=== PATIENT | female | born 1955 | race Caucasian/White ===

== ENCOUNTER 2018-11-14 17:46 | Inpatient (IN) ==
--- NOTE | 2018-11-14 18:54 | ED ---
HPI General Chief Complaint: Fall Stated Complaint: R upper thigh pain /radiating down leg/can't stand Time Seen by Provider: 11/14/18 18:20 Source: patient Mode of arrival: ambulatory Limitations: no limitations History of Present Illness HPI Narrative: 63-year-old female presents the emergency room for evaluation of right upper leg pain for the past week. Patient had a mechanical fall over a rug 1 week ago. Adamantly denies any other injuries. She had to be assisted to stand up by her and daughters but by later in the evening was able to ambulate. Reports moderate pain worsened with ambulation throughout the week. Pain is mostly localized to the mid femur and radiates down her entire right lower extremity. She also reports pain in her right lateral hip and buttocks region. Her pain was manageable and seemed to be improving until today when it acutely worsened while walking. She has been taking her prescribed hydrocodone without relief. Denies paresthesias. Only history of anxiety and arthritis for which she is prescribed diazepam and hydrocodone. She denies being on any blood thinners. Primary care physician is Dr. Walker. complaint: Reports thigh injury Onset (ago): week(s) Place: Reports home Severity: moderate Severity scale (1-10): 10 Relieving factors: nothing Exacerbating factors: weight bearing, movement and palpation Context: Reports fall Associated symptoms: Reports able to partially bear weight; Denies snap/pop sensation, numbness and tingling Other symptoms: Reports none Related Data Home Medications Medication Instructions Recorded Confirmed diazepam 10 mg PO BID PRN 11/14/18 11/14/18 hydrocodone-acetaminophen 1 tab PO TID PRN 11/14/18 11/14/18 Allergies Allergy/AdvReac Type Severity Reaction Status Date / Time No Known Allergies Allergy Verified 11/14/18 17:52 Review of Systems ROS: all other systems reviewed are negative [facility] Medical History Medical History Chronic pain (Acute) Surgical History Surgical History No history of previous surgery (Acute) Social History Social History Substance History: No History of Abuse Smoking Status: Former smoker How Often Do You Have a Drink Containing Alcohol: Never Recent Travel in [facility] within the Last 8 Weeks: No Recent Out of Country Travel within the Last 8 Weeks: No Immunization History Tetanus Immunization: Unsure Exam Narrative Exam Narrative: GENERAL: Well-nourished, well-developed female no acute distress. Afebrile. SKIN: Focused skin assessment warm/dry. There is a 4 cm in diameter area of ecchymosis over the right lateral hip. HEAD: Normocephalic. EYES: No scleral icterus. No injection or drainage. NECK: Supple, trachea midline. No JVD or lymphadenopathy. CARDIOVASCULAR: Regular rate and rhythm without murmurs, gallops, or rubs. RESPIRATORY: Breath sounds equal bilaterally. No accessory muscle use. Abdomen: No guarding or rigidity. No rebound tenderness. MUSCULOSKELETAL: No cyanosis. No obvious deformity, rotation, or shortening of the right leg. 2+ dorsalis pedis pulse on the right. Full range of motion of the hip. Tenderness to palpation of the right mid femur and right upper lateral hip. No bony tenderness to palpation of the lower leg. No obvious edema. Neurological: Sensation is intact right lower extremity. Nonfocal on exam. Psychiatric: Slightly anxious. Insight and judgment appear normal. Course Initial Documented Vital Signs Temperature 97.0 F L 11/14/18 17:50 Pulse Rate 75 11/14/18 17:50 Respiratory Rate 16 11/14/18 17:50 Blood Pressure 129/68 11/14/18 17:50 Pulse Oximetry 97 11/14/18 17:50 Last Documented Vital Signs Temperature 97.0 F L 11/14/18 17:50 Pulse Rate 77 11/14/18 20:00 Respiratory Rate 18 11/14/18 20:00 Blood Pressure 116/65 11/14/18 20:00 Pulse Oximetry 99 11/14/18 20:00 Medical Decision Making KALANI Attestation KALANI supervised visit: Yes Attestation: I, Dr. Spence, have reviewed the advance practice practitioner' s documentation and am in agreement, met with the patient face to face, made the diagnosis, and the medical decision making was done by me. *My assessment and Findings: The patient is a 63-year-old female who tripped and fell 1 week ago, tripping over a rug, landing on her right side. Patient initially was ambulatory, however, notes that she is having increasing pain of the right hip with ambulation and is now unable to ambulate. The patient denies any other injuries during the fall. Patient does have a history of anxiety for which she takes Valium, denies any previous medical problems except for anxiety, denies any previous surgeries. The patient is followed by her primary physician, Dr. Buster Walker, does not have an orthopedist. X-ray reveals a femoral neck fracture. Therefore, IV was established, labs are drawn and sent, the patient was placed on cardiac telemetry monitoring and continuous pulse oximetry monitoring. Tee catheter was ordered. The patient was administer morphine and Zofran for pain. EKG was ordered and interpreted. Chest x-ray was obtained. A call was placed to the on-call [facility] physician for admission. The patient will require transfer to [facility] for definitive surgical management. A call was also placed to the on-call orthopedist, Dr. Guerin, at 7:30 PM. I discussed the patient with Dr. Guerin who agrees with n.p.o. after midnight, therefore, the patient will be kept n.p.o. after midnight. I discussed the patient with Dr. Mcpherson who agrees with admission. MDM Narrative Medical decision making narrative: 63-year-old female presents to the emergency room for evaluation of right femur pain after mechanical fall about 1 week ago. Patient landed on her right lateral hip and has been amatory since then. Her pain was initially improving but today it worsened acutely without new trauma or injury. Right lower extremity is neurovascular intact with 2+ dorsalis pedis pulse. She has passive range of motion of her hip without shortening, rotation, deformity, or edema but there is pain with active range of motion. There is a small area of ecchymosis on the lateral hip. No significant bony tenderness to palpation. X-ray of the femur shows femoral neck fracture. At this time IV access was established and basic labs obtained. Preop EKG and chest x-ray were taken. Patient will be transferred to the [facility] for surgical intervention. She was made aware and understands and agrees to plan. Medical Screen Exam Complete: Yes Emergency Medical Condition: Yes Differential Diagnosis Differential Diagnosis: Fracture, strain, contusion, dislocation, spasm Lab Data Lab results reviewed: Yes I reviewed the patient's lab results. Result diagrams: 11/14/18 19:54 11/14/18 19:54 Lab Results 11/14/18 11/14/18 11/14/18 Range/Units 19:54 19:54 19:54 CBC w Diff Auto diff final WBC 11.3 H (4.0-11.0) th/mm3 RBC 3.64 L (4.00-5.30) mil/mm3 Hgb 11.8 (11.6-15.3) gm/dL Hct 35.7 (35.0-46.0) % MCV 98.1 (80.0-100.0) fL MCH 32.5 (27.0-34.0) pg MCHC 33.1 (32.0-36.0) % RDW 11.9 (11.6-17.2) % Plt Count 347 (150-450) th/mm3 MPV 8.5 (7.0-11.0) fL Neut % (Auto) 83.9 H (16.0-70.0) % Lymph % (Auto) 10.5 (9.0-44.0) % Green % (Auto) 4.5 (0.0-8.0) % Eos % (Auto) 0.5 (0.0-4.0) % Baso % (Auto) 0.6 (0.0-2.0) % Neut # (Auto) 9.4 H (1.8-7.7) th/mm3 Lymph # (Auto) 1.2 (1.0-4.8) th/mm3 Green # (Auto) 0.5 (0.0-0.9) th/mm3 Eos # (Auto) 0.1 (0.0-0.4) th/mm3 Baso # (Auto) 0.1 (0.0-0.2) th/mm3 WBC Differential . Differential Comment . PT 10.4 (9.8-11.6) sec INR 1.0 Ratio APTT 27.8 (23.4-31.7) sec Sodium 137 (136-145) meq/L Potassium 4.3 (3.5-5.1) meq/L Chloride 103 (98-107) meq/L Carbon Dioxide 27.8 (21.0-32.0) meq/L Anion Gap 6 (5-15) meq/L BUN 23 H (7-18) mg/dL Creatinine 1.00 (0.50-1.00) mg/dL Estimated GFR 56 L (>89) mL/min Random Glucose 102 (74-106) mg/dL Calcium 8.5 (8.5-10.1) mg/dL Total Bilirubin 0.3 (0.2-1.0) mg/dL AST 27 (15-37) U/L ALT 19 (10-53) U/L Alkaline Phosphatase 117 (45-117) U/L Total Protein 7.3 (6.4-8.2) g/dL Albumin 3.4 (3.4-5.0) g/dL Urine Color (Yellw/Straw) Urine Clarity (Clear) Urine pH (5.0-8.5) Ur Specific [place] (1.002-1.035) Urine Protein (Neg-Trace) mg/dL Urine Glucose (UA) (Negative) mg/dL Urine Ketones (Negative) mg/dL Urine Occult Blood (Negative) Urine Nitrate (Negative) Urine Bilirubin (Negative) Urine Urobilinogen (Less than 2) mg/dL Ur Leukocyte Esterase (Negative) Urine RBC (0-3) /hpf Urine WBC (0-5) /hpf Ur Squamous Epith Cells (0-5) /hpf Ur Microscopic Review 11/14/18 Range/Units 20:40 CBC w Diff WBC (4.0-11.0) th/mm3 RBC (4.00-5.30) mil/mm3 Hgb (11.6-15.3) gm/dL Hct (35.0-46.0) % MCV (80.0-100.0) fL MCH (27.0-34.0) pg MCHC (32.0-36.0) % RDW (11.6-17.2) % Plt Count (150-450) th/mm3 MPV (7.0-11.0) fL Neut % (Auto) (16.0-70.0) % Lymph % (Auto) (9.0-44.0) % Green % (Auto) (0.0-8.0) % Eos % (Auto) (0.0-4.0) % Baso % (Auto) (0.0-2.0) % Neut # (Auto) (1.8-7.7) th/mm3 Lymph # (Auto) (1.0-4.8) th/mm3 Green # (Auto) (0.0-0.9) th/mm3 Eos # (Auto) (0.0-0.4) th/mm3 Baso # (Auto) (0.0-0.2) th/mm3 WBC Differential Differential Comment PT (9.8-11.6) sec INR Ratio APTT (23.4-31.7) sec Sodium (136-145) meq/L Potassium (3.5-5.1) meq/L Chloride (98-107) meq/L Carbon Dioxide (21.0-32.0) meq/L Anion Gap (5-15) meq/L BUN (7-18) mg/dL Creatinine (0.50-1.00) mg/dL Estimated GFR (>89) mL/min Random Glucose (74-106) mg/dL Calcium (8.5-10.1) mg/dL Total Bilirubin (0.2-1.0) mg/dL AST (15-37) U/L ALT (10-53) U/L Alkaline Phosphatase (45-117) U/L Total Protein (6.4-8.2) g/dL Albumin (3.4-5.0) g/dL Urine Color Yellow (Yellw/Straw) Urine Clarity Clear (Clear) Urine pH 6.0 (5.0-8.5) Ur Specific [place] Greater/equal 1.030 (1.002-1.035) Urine Protein Trace (Neg-Trace) mg/dL Urine Glucose (UA) Negative (Negative) mg/dL Urine Ketones Negative (Negative) mg/dL Urine Occult Blood Negative (Negative) Urine Nitrate Negative (Negative) Urine Bilirubin Negative (Negative) Urine Urobilinogen 0.2 (Less than 2) mg/dL Ur Leukocyte Esterase Negative (Negative) Urine RBC 0-3 (0-3) /hpf Urine WBC 0-5 (0-5) /hpf Ur Squamous Epith Cells 0-5 (0-5) /hpf Ur Microscopic Review Microscopic reviewed Imaging Data Radiologist's impression: Femur X-Ray 11/14/18 18:47 CONCLUSION: Femoral neck fracture. Chest X-Ray 11/14/18 19:19 CONCLUSION: The lungs are clear. ECG Data EKG Prior to Arrival: No Attestation: I personally reviewed and interpreted this ECG as follows: Interpretation: EKG reveals normal sinus rhythm with a rate of 77. No ischemic changes or ectopy noted. Discharge Plan Discharge Disposition Patient Disposition: ED Admit(ED Internal Use Only) Discharge Condition Condition: Stable Discharge Order Discharge Orders: ED Use Only Admit Order (Routine); Ordered 11/14/18 Ordered By: Collin Spence Discharge Details Diagnosis: Closed fracture of right hip Physicians Team ED Provider: Collin Spence ED Midlevel Provider: Elli Galicia Primary Care Provider: Guy Walker Attending Provider: Jg Mcpherson Other Providers: Marlon Valdez Brian Status ED Status: Admitted Patient
--- NOTE | 2018-11-14 19:16 | XR ---
EXAM DATE: 11/14/2018 7:07 PM EST AGE/SEX: 63 years / Female INDICATIONS: Fell 1 week ago, sudden increase in pain while shopping today CLINICAL DATA: This is the patient's initial encounter. Patient reports that signs and symptoms have been present for 1 week and indicates a pain score of 9/10. MEDICAL/SURGICAL HISTORY: None. None. COMPARISON: No prior exams available for comparison. FINDINGS: Abnormal. There is a mildly displaced fracture through the [facility]ap[facility] femoral neck with mild overrid ing. The femoral head remains within the acetabulum. There is disruption of the secondary trabecular pattern in the femoral neck. The shaft of the femur is intact. No radiopaque foreign bodies seen. CONCLUSION: Femoral neck fracture. Electronically signed by: Ernesto Rodriguez MD Board Certified Radiologist 11/14/2018 7:15 PM EST
[2018-11-14] MEDS ORDERED: Morphine Inj 4 MG/ML Vial IV.PUSH ONE (19:20)
[2018-11-14] MEDS ORDERED: Acetaminophen 325 MG Tablet PO PRN (19:44)
[2018-11-14] MEDS ORDERED: Bisacodyl 10 MG Supp RECTAL PRN (19:44)
[2018-11-14] MEDS ORDERED: Temazepam 15 MG Capsule PO PRN (19:44)
[2018-11-14] MEDS ORDERED: LORazepam 1 MG Tablet PO PRN (19:48)
[2018-11-14] MEDS: Sod Chloride 0.9% Inj 1,000 ML IV.CONT SCH (19:53)
[2018-11-14 20:02] LABS: Baso # (Auto) 0.1 th/mm3 (0.0-0.2); Baso % (Auto) 0.6 % (0.0-2.0); Eos # (Auto) 0.1 th/mm3 (0.0-0.4); Eos % (Auto) 0.5 % (0.0-4.0); Hematocrit 35.7 % (35.0-46.0); Hemoglobin 11.8 gm/dL (11.6-15.3); Lymph # (Auto) 1.2 th/mm3 (1.0-4.8); Lymph % (Auto) 10.5 % (9.0-44.0); Mean Corpuscular HGB Conc 33.1 % (32.0-36.0); Mean Corpuscular Hemoglobin 32.5 pg (27.0-34.0); Mean Corpuscular Volume 98.1 fL (80.0-100.0); Mean Platelet Volume 8.5 fL (7.0-11.0); Mono # (Auto) 0.5 th/mm3 (0.0-0.9); Mono % (Auto) 4.5 % (0.0-8.0); Neut # (Auto) 9.4 th/mm3 (1.8-7.7); Neut % (Auto) 83.9 % (16.0-70.0); Platelet Count 347 th/mm3 (150-450); Red Blood Count 3.64 mil/mm3 (4.00-5.30); Red Cell Distribution Width 11.9 % (11.6-17.2); White Blood Count 11.3 th/mm3 (4.0-11.0)
[2018-11-14 20:10] LABS: Chloride 103 meq/L (98-107); Potassium 4.3 meq/L (3.5-5.1); Sodium 137 meq/L (136-145)
[2018-11-14 20:13] LABS: Albumin 3.4 g/dL (3.4-5.0); Anion Gap 6 meq/L (5-15); Calcium 8.5 mg/dL (8.5-10.1); Carbon Dioxide 27.8 meq/L (21.0-32.0); Glucose,Random 102 mg/dL (74-106)
[2018-11-14 20:14] LABS: Blood Urea Nitrogen 23 mg/dL (7-18)
[2018-11-14 20:15] LABS: Activated Partial Thrombo Time 27.8 sec (23.4-31.7); Prothrombin Time 10.4 sec (9.8-11.6)
[2018-11-14 20:16] LABS: Alanine Aminotransferase 19 U/L (10-53); Aspartate Aminotransferase 27 U/L (15-37)
[2018-11-14 20:17] LABS: Glomerular Filtration Rate 56 mL/min (>89)
[2018-11-14 20:18] LABS: Total Protein 7.3 g/dL (6.4-8.2)
[2018-11-14 20:19] LABS: Alkaline Phosphatase 117 U/L (45-117)
--- NOTE | 2018-11-14 20:39 | XR ---
EXAM DATE: 11/14/2018 7:46 PM EST AGE/SEX: 63 years / Female INDICATIONS: Evaluate for pneumonia, pneumothorax, or other communicable diseases. Preop for hip kendra christine on 11/15/17. CLINICAL DATA: This is the patient's initial encounter. Patient reports that signs and symptoms have been present for 1 day and indicates a pain score of 0/10. MEDICAL/SURGICAL HISTORY: None. None. COMPARISON: No prior exams available for comparison. FINDINGS: A single AP view of the chest demonstrates the lungs to be symmetrically aerated without evidence of mass, infiltrate or effusion. The cardiomediastinal contours are unremarkable. Osseous structures a re intact. CONCLUSION: The lungs are clear. Electronically signed by: Ernesto Rodriguez MD Board Certified Radiologist 11/14/2018 8:37 PM EST
[2018-11-14 20:46] LABS: Bilirubin,Urine Negative (Negative); Clarity,Urine Clear (Clear); Color,Urine Yellow (Yellw/Straw); Glucose,Urine (UA) Negative (Negative); Leukocyte Esterase,Urine Negative (Negative); Nitrite,Urine Negative (Negative); Specific Gravity,Urine Greater/Equal 1.030 (1.002-1.035); Urobilinogen,Urine 0.2 mg/dL (Less than 2)
[2018-11-14 20:50] LABS: RBC,Urine 0-3 /hpf (0-3); Squamous Epithelial Cell,Urine 0-5 /hpf (0-5); WBC,Urine 0-5 /hpf (0-5)
[2018-11-14] MEDS ORDERED: Chlorhexidine Gluconate 2% 1 Pack (2 Cloths) TOPICAL ONE (23:14)
[2018-11-14] MEDS ORDERED: Metoprolol Tartrate 25 MG Tablet PO ONE (23:14)
[2018-11-14] MEDS ORDERED: Sodium Chlor 0.9% Inj 500 ML IV.SIG SCH (23:45)
[2018-11-14] MEDS: Morphine Inj 4 MG/ML Vial IV.PUSH PRN (23:51)
[2018-11-15] MEDS: Morphine Inj 4 MG/ML Vial IV.PUSH PRN (06:53)
--- NOTE | 2018-11-15 06:53 | P.PNOP ---
Subjective Interval history: Trip and fall less than a week ago at home. Continued to have pain to her right hip and had progressed difficulty with ambulation. At this point she is unable to put any weight on the right lower extremity. X-rays were shown for a right femoral neck fracture. Physical Exam Vital signs: Vital Signs 11/14/18 17:50 11/14/18 20:00 11/14/18 21:52 Temperature 97.0 F L 98.0 F Pulse Rate 75 77 74 Respiratory Rate 16 18 18 Blood Pressure 129/68 116/65 120/67 Pulse Oximetry 97 99 11/14/18 22:58 11/15/18 03:57 Temperature 98.4 F 97.6 F Pulse Rate 89 73 Respiratory Rate 20 18 Blood Pressure 144/67 H 112/58 L Pulse Oximetry 95 96 Intake & Output 11/14/18 11/14/18 11/15/18 06:59 18:59 06:59 Intake Total 1240 / 1240 Balance 1240 / 1240 Weight 45 kg 44.906 kg Intake: IV 1000 / 1000 NS Inj 1,000 ML @ 100 mls/hr IV 1000 / 1000 .CONT .Q10H ROWAN Rx#:[id number] Oral 240 / 240 Other: Date of Last Bowel Movement 11/14/18 Weight On Admission 44.906 kg Narrative: Bilateral upper extremities: Full range of motion neurovascular intact Left lower extremity: Full range of motion and neurovascular intact Right lower extremity: Pain to palpation and movement of hip. No pain with knee or ankle range of motion. Distally intact sensation with good capillary refills. Active dorsiflexion and plantarflexion of foot - Urinary Catheter Management Indwelling Urethral Catheter Cath placed during this visit: yes Reason for continuing: Other continuation reason Insertion date: 11/14/18 Insertion time: 20:32 Results - Labs CBC & Chem 7: 11/14/18 19:54 11/14/18 19:54 Laboratory Results - last 24 hr 11/14/18 11/14/18 11/14/18 19:54 19:54 19:54 CBC w Diff Auto diff final WBC 11.3 H RBC 3.64 L Hgb 11.8 Hct 35.7 MCV 98.1 MCH 32.5 MCHC 33.1 RDW 11.9 Plt Count 347 MPV 8.5 Neut % (Auto) 83.9 H Lymph % (Auto) 10.5 [place] % (Auto) 4.5 Eos % (Auto) 0.5 Baso % (Auto) 0.6 Neut # (Auto) 9.4 H Lymph # (Auto) 1.2 [place] # (Auto) 0.5 Eos # (Auto) 0.1 Baso # (Auto) 0.1 WBC Differential . Differential Comment . PT 10.4 INR 1.0 APTT 27.8 Sodium 137 Potassium 4.3 Chloride 103 Carbon Dioxide 27.8 Anion Gap 6 BUN 23 H Creatinine 1.00 Estimated GFR 56 L Random Glucose 102 Calcium 8.5 Total Bilirubin 0.3 AST 27 ALT 19 Alkaline Phosphatase 117 Total Protein 7.3 Albumin 3.4 Urine Color Urine Clarity Urine pH Ur Specific [place] Urine Protein Urine Glucose (UA) Urine Ketones Urine Occult Blood Urine Nitrate Urine Bilirubin Urine Urobilinogen Ur Leukocyte Esterase Urine RBC Urine WBC Ur Squamous Epith Cells Ur Microscopic Review 11/14/18 20:40 CBC w Diff WBC RBC Hgb Hct MCV MCH MCHC RDW Plt Count MPV Neut % (Auto) Lymph % (Auto) [place] % (Auto) Eos % (Auto) Baso % (Auto) Neut # (Auto) Lymph # (Auto) [place] # (Auto) Eos # (Auto) Baso # (Auto) WBC Differential Differential Comment PT INR APTT Sodium Potassium Chloride Carbon Dioxide Anion Gap BUN Creatinine Estimated GFR Random Glucose Calcium Total Bilirubin AST ALT Alkaline Phosphatase Total Protein Albumin Urine Color Yellow Urine Clarity Clear Urine pH 6.0 Ur Specific [place] Greater/equal 1.030 Urine Protein Trace Urine Glucose (UA) Negative Urine Ketones Negative Urine Occult Blood Negative Urine Nitrate Negative Urine Bilirubin Negative Urine Urobilinogen 0.2 Ur Leukocyte Esterase Negative Urine RBC 0-3 Urine WBC 0-5 Ur Squamous Epith Cells 0-5 Ur Microscopic Review Microscopic reviewed - Imaging Impressions Femur X-Ray 11/14/18 18:47 CONCLUSION: Femoral neck fracture. Chest X-Ray 11/14/18 19:19 CONCLUSION: The lungs are clear. Assessment and Plan - Assessment and Plan Displaced right femoral neck fracture N.p.o. Surgery this morning for right total hip arthroplasty. Due to displacement of fracture, replacement is the most viable option with the most benefit for the patient. Risks and benefits are discussed with patient. Sign consents
[2018-11-15] MEDS ORDERED: SODIUM CHLOR 0.9% IV.SIG SCH (07:00)
[2018-11-15] MEDS ORDERED: TRANEXAMIC ACID IV.SIG SCH (07:00)
[2018-11-15] MEDS: Sod Chloride 0.9% Inj 1,000 ML IV.CONT SCH ×2 (07:37→16:42)
--- NOTE | 2018-11-15 08:55 | P.CONOP ---
[facility] Orthopedics Consult Note - [facility] Consult date: 11/15/18 Chief complaint: Closed right femoral neck fracture Narrative: Fabi is a 63-year-old female. She lives at home with her and 2 children. She had a fall approximately 1 week ago. She landed on her right side. She describes a mechanical fall. She had immediate right hip pain. She has been unable to bear weight on her right leg. She has been hobbling around with a cane. Her pain is severe and intense when trying to weight-bear or walk. Pain is improved with rest. She presents to the emergency room complaining of right hip pain. X-rays revealed a displaced right femoral neck fracture. She is currently awake alert on the orthopedic floor. Her only complaint is her right hip. She denies dizziness or syncope. She has a history of anxiety. Review of Systems Patient denies fevers, chills, weight loss, headache, visual changes, hearing loss, chest pain, palpitations, shortness of breath, nausea, vomiting, no urinary changes, diarrhea, bowel changes, neck pain, back pain, skin rashes, weakness of extremities, easy bleeding, enlarged lymph nodes, numbness of extremities, anxiety, or depression. She complains of right hip pain Patient's social history, past medical history, and family history were reviewed on chart and with patient. [facility] - History History Provided By: Patient - Medical History Medical History: Medical History (Last Reviewed 11/15/18 @ 08:53 by Marlon Valdez MD) Chronic pain - Surgical History Surgical History: Surgical History (Last Reviewed 11/15/18 @ 08:53 by Marlon Valdez MD) No history of previous surgery - Family History Family History: Family History (Last Updated 11/15/18 @ 08:53 by Marlon Valdez MD) Other Family history non-contributory - Social History I have reviewed the patient's Social History: Yes - Tobacco History Second Hand Smoke Exposure: No Smoking Status: Former smoker - Alcohol History How Often Do You Have a Drink Containing Alcohol: Never - Substance Use History Substance History: No History of Abuse - Travel History Recent Travel in the [facility] Within the Last 8 Weeks: No Recent Travel Out of the Country Within the Last 8 Weeks: No - Immunization History Tetanus Immunization: Unsure Hx Influenza Vaccine This Season: No Medications and Allergies Active Medications: Active Medications Acetaminophen (Tylenol) 650 mg PO Q4H PRN PRN Reason: Temp > 100.4 Al Hydroxide/Mg Hydroxide (Milk Of Magnesia Liq) 30 ml PO Q12H PRN PRN Reason: Mild Constipation Bisacodyl (Dulcolax Supp) 10 mg RECTAL DAILY PRN PRN Reason: SEVERE CONSITIPATION Sodium Chloride (Ns Inj) 1,000 mls @ 100 mls/hr IV.CONT .Q10H [facility] Last Admin: 11/15/18 07:37 Dose: Not Given Lactated Ringer's (Lr 1000 Ml Inj) 1,000 mls @ 30 mls/hr IV.SIG .Q24H [facility] Stop: 11/15/18 23:14 Last Admin: 11/15/18 07:36 Dose: 30 mls/hr Sodium Chloride (Ns Inj) 500 mls @ 30 mls/hr IV.SIG .Q10H [facility] Last Admin: 11/15/18 07:36 Dose: Not Given Tranexamic Acid 674 mg/ Sodium (Chloride) 106.74 mls @ 200 mls/hr IV.SIG ONCE [facility] Stop: 11/15/18 13:00 Lactulose (Lactulose Liq) 30 ml PO DAILY PRN PRN Reason: SEVERE CONSITIPATION Lorazepam (Ativan) 1 mg PO Q6H PRN PRN Reason: ANXIETY Last Admin: 11/14/18 20:54 Dose: 1 mg Morphine Sulfate (Morphine Inj) 4 mg IV.PUSH Q4H PRN PRN Reason: pain 3-10 Last Admin: 11/15/18 06:53 Dose: 4 mg Ondansetron HCl (Zofran Inj) 4 mg IV.PUSH Q6H PRN PRN Reason: NAUSEA OR VOMITING Sennosides (Senokot) 17.2 mg PO Q12H PRN PRN Reason: Moderate Constipation Sodium Chloride (Ns Flush) 2 ml IV.FLUSH PRN PRN PRN Reason: FLUSH AFTER USING IV ACCESS Sodium Chloride (Ns Flush) 2 ml IV.FLUSH BID [facility] Last Admin: 11/14/18 23:24 Dose: Not Given Temazepam (Restoril) 15 mg PO HS PRN PRN Reason: INSOMNIA Allergies Allergy/AdvReac Type Severity Reaction Status Date / Time No Known Allergies Allergy Verified 11/14/18 17:52 Home Medications Medication Instructions Recorded Confirmed Type diazepam 10 mg PO BID PRN 11/14/18 11/14/18 History hydrocodone-acetaminophen 1 tab PO TID PRN 11/14/18 11/14/18 History Exam Vital signs: Vital Signs 11/14/18 17:50 11/14/18 20:00 11/14/18 21:52 Temperature 97.0 F L 98.0 F Pulse Rate 75 77 74 Respiratory Rate 16 18 18 Blood Pressure 129/68 116/65 120/67 Pulse Oximetry 97 99 11/14/18 22:58 11/15/18 03:57 11/15/18 08:00 Temperature 98.4 F 97.6 F 98.3 F Pulse Rate 89 73 75 Respiratory Rate 20 18 16 Blood Pressure 144/67 H 112/58 L 131/58 L Pulse Oximetry 95 96 94 L Intake & Output 11/14/18 11/15/18 11/15/18 18:59 06:59 18:59 Intake Total 1240 / 1240 Balance 1240 / 1240 Weight 45 kg 44.906 kg Intake: IV 1000 / 1000 NS Inj 1,000 ML @ 100 mls/hr IV 1000 / 1000 .CONT .Q10H [facility] Rx#:[id number] Oral 240 / 240 Other: Date of Last Bowel Movement 11/14/18 Weight On Admission 44.906 kg Narrative: Fabi is a pleasant 63-year-old female. General: Awake and alert. No acute distress, mildly anxious. Appears well- developed well-nourished Head: Normocephalic, atraumatic pupils are equal Neck: Soft, nontender, trachea midline Abdomen: Soft, nondistended Examination of right arm reveals no pain or deformity with shoulder, elbow, or wrist motion. Skin is intact. Radial pulse is palpable. Normal capillary refill in fingers. Sensation is intact in radial, ulnar, and median nerve distributions. Grinder Machine Knife Setter strength is +5. No lymphadenopathy noted. Examination of left arm reveals no pain or deformity with shoulder, elbow, or wrist motion. Skin is intact. Radial pulse is palpable. Normal capillary refill in fingers. Sensation is intact in radial, ulnar, and median nerve distributions. Grinder Machine Knife Setter strength is +5. No lymphadenopathy noted. Examination of left lower extremity reveals no pain or deformity with hip, knee , or ankle motion. Skin is intact. Sensation is intact in left foot. Dorsalis pedis pulse is palpable. Normal capillary refill and feet. Thigh and calf compartments are soft. No lymphadenopathy noted. +5 strength of ankle dorsiflexion and plantarflexion. Examination of right lower extremity pain with any hip motion. She has no pain with knee or ankle motion. Skin is intact. Sensation is intact in right foot. Dorsalis pedis pulse is palpable. Normal capillary refill and feet. Thigh and calf compartments are soft. No lymphadenopathy noted. +5 strength of ankle dorsiflexion and plantarflexion. Results - Labs Result Diagrams: 11/14/18 19:54 11/14/18 19:54 Labs: Laboratory Results - last 24 hr 11/14/18 11/14/18 11/14/18 19:54 19:54 19:54 CBC w Diff Auto diff final WBC 11.3 H RBC 3.64 L Hgb 11.8 Hct 35.7 MCV 98.1 MCH 32.5 MCHC 33.1 RDW 11.9 Plt Count 347 MPV 8.5 Neut % (Auto) 83.9 H Lymph % (Auto) 10.5 Hickman % (Auto) 4.5 Eos % (Auto) 0.5 Baso % (Auto) 0.6 Neut # (Auto) 9.4 H Lymph # (Auto) 1.2 [place]man # (Auto) 0.5 Eos # (Auto) 0.1 Baso # (Auto) 0.1 WBC Differential . Differential Comment . PT 10.4 INR 1.0 APTT 27.8 Sodium 137 Potassium 4.3 Chloride 103 Carbon Dioxide 27.8 Anion Gap 6 BUN 23 H Creatinine 1.00 Estimated GFR 56 L Random Glucose 102 Calcium 8.5 Total Bilirubin 0.3 AST 27 ALT 19 Alkaline Phosphatase 117 Total Protein 7.3 Albumin 3.4 Urine Color Urine Clarity Urine pH Ur Specific [place] Urine Protein Urine Glucose (UA) Urine Ketones Urine Occult Blood Urine Nitrate Urine Bilirubin Urine Urobilinogen Ur Leukocyte Esterase Urine RBC Urine WBC Ur Squamous Epith Cells Ur Microscopic Review 11/14/18 20:40 CBC w Diff WBC RBC Hgb Hct MCV MCH MCHC RDW Plt Count MPV Neut % (Auto) Lymph % (Auto) [place] % (Auto) Eos % (Auto) Baso % (Auto) Neut # (Auto) Lymph # (Auto) [place] # (Auto) Eos # (Auto) Baso # (Auto) WBC Differential Differential Comment PT INR APTT Sodium Potassium Chloride Carbon Dioxide Anion Gap BUN Creatinine Estimated GFR Random Glucose Calcium Total Bilirubin AST ALT Alkaline Phosphatase Total Protein Albumin Urine Color Yellow Urine Clarity Clear Urine pH 6.0 Ur Specific [place] Greater/equal 1.030 Urine Protein Trace Urine Glucose (UA) Negative Urine Ketones Negative Urine Occult Blood Negative Urine Nitrate Negative Urine Bilirubin Negative Urine Urobilinogen 0.2 Ur Leukocyte Esterase Negative Urine RBC 0-3 Urine WBC 0-5 Ur Squamous Epith Cells 0-5 Ur Microscopic Review Microscopic reviewed - Diagnostic results Imaging: Impressions Femur X-Ray 11/14/18 18:47 CONCLUSION: Femoral neck fracture. Chest X-Ray 11/14/18 19:19 CONCLUSION: The lungs are clear. Hip x-ray: report reviewed, image reviewed Assessment and Plan - Assessment and Plan Fabi had a fall resulting in displaced right femoral neck fracture. Treatment options were discussed with her. I discussed 3 potential treatment options including open reduction internal fixation, right hip hemiarthroplasty, and right total hip arthroplasty. The risk and benefits of surgery were discussed in depth with patient. All questions were answered. Patient is relatively active for her age. I feel that her best functional outcome would be from total hip arthroplasty. She is in agreement with this plan. The risk and benefits of surgery were discussed in depth with patient. The risk of surgery include bleeding, infection, injuries to arteries, nerves, or blood vessels, infection, wound complications, leg length discrepancy, hip dislocation, femur fracture, trochanteric bursitis, painful hardware, and need for further surgery. I also discussed medical complications including blood clots, pneumonia, stroke, heart attack, and . Informed consent was obtained and all questions were answered. N.p.o.--plan on surgery this morning Calcium and vitamin D supplementation Physical therapy consult Follow-up with Dr. Valdez in 2 weeks COLLEEN Blanco Lovenox A mid-level provider in my office (nurse practitioner or physician assistant restaurant general manager) may see this patient on follow-up visits and continue to implement the objectives of this plan including: Starting or adjusting medications, injections , cast application, orthotics, brace application, physical therapy, radiological studies (including x-ray, MRI, CT, ultrasound, bone scan), vascular studies, neurologic studies, specialist consultation, and proceeding with surgical management, as appropriate.
[2018-11-15] MEDS ORDERED: Tobramycin Sulfate 1,200 MG Vial (for ortho/sterile core) OTHER ONE (09:38)
[2018-11-15] MEDS ORDERED: Sodium Chlor 0.9% Inj 40 ML, Bupivacaine Liposo PF 1.3% Inj 20 ML, Bupivacaine PF 0.25%... P-ARTICULR ONE ×3 (09:56)
--- NOTE | 2018-11-15 10:33 | P.HPIM ---
History of Present Illness Primary Care Physician: Guy Walker DO Chief Complaint: Hip pain History of Present Illness: Mrs. Ronquillo is a 63 y/o female with anxiety/ depression, osteoarthritis, and allergic rhinitis who presented to the ED at [facility] on [place]14[place]17 for evaluation of right upper leg pain which began after a mechanical fall 1 week prior. Patient reportedly tripped and fell over a rug 1 week ago and landed on her right side. She had to be assisted to stand up by her and daughters but by later in the evening was able to ambulate. Pt reports that the pain worsened with ambulation throughout the week, mostly localized to the mid femur and radiates down her entire right lower extremity. She also reports pain in her right lateral hip and buttock region. Her pain acutely worsened while walking yesterday and this prompted her evaluation in the ED on 11/14/17. Imaging studies in the ED revealed a right mildly displaced femoral neck fracture. Pt was seen by Orthopedic surgery and underwent surgical repair this morning. Past Medical Hx: Anxiety/Depression OA Chronic back pain Allergic rhinitis Tobacco use Past Surgical Hx: None reported Family Hx: Noncontributory Social Hx: Hx of tobacco use Denies any alcohol use Diagnosis (1) Closed fracture of right hip: (2) Anxiety: Inpatient Certification Inpatient Certification: I certify that the inpatient services were ordered in accordance with Medicare regulations governing the order. This includes certification that hospital inpatient services are reasonable and necessary and in the case of services not specified as inpatient-only under 42 CFR 419.22(n), that they are appropriately provided as inpatient services in accordance to with the 2-midnight benchmark under 43 CFR 412.3(e) Estimated Total Length of Stay (Days): 3 Plans for Post Hospital Care: Not yet determined Medications and Allergies Allergies Allergy/AdvReac Type Severity Reaction Status Date / Time No Known Allergies Allergy Verified 11/14/18 17:52 Home Medications Medication Instructions Recorded Confirmed Type diazepam 10 mg PO BID PRN 11/14/18 11/14/18 History hydrocodone-acetaminophen 1 tab PO TID PRN 11/14/18 11/14/18 History Active Medications: Active Medications Acetaminophen (Tylenol) 650 mg PO Q4H PRN PRN Reason: Temp > 100.4 Al Hydroxide/Mg Hydroxide (Milk Of Magnesia Liq) 30 ml PO Q12H PRN PRN Reason: Mild Constipation Bisacodyl (Dulcolax Supp) 10 mg RECTAL DAILY PRN PRN Reason: SEVERE CONSITIPATION Sodium Chloride (Ns Inj) 1,000 mls @ 100 mls/hr IV.CONT .Q10H [facility] Last Admin: 11/15/18 07:37 Dose: Not Given Lactated Ringer's (Lr 1000 Ml Inj) 1,000 mls @ 30 mls/hr IV.SIG .Q24H [facility] Stop: 11/15/18 23:14 Last Admin: 11/15/18 07:36 Dose: 30 mls/hr Sodium Chloride (Ns Inj) 500 mls @ 30 mls/hr IV.SIG .Q10H [facility] Last Admin: 11/15/18 07:36 Dose: Not Given Tranexamic Acid 674 mg/ Sodium (Chloride) 106.74 mls @ 200 mls/hr IV.SIG ONCE [facility] Stop: 11/15/18 13:00 Lactulose (Lactulose Liq) 30 ml PO DAILY PRN PRN Reason: SEVERE CONSITIPATION Lorazepam (Ativan) 1 mg PO Q6H PRN PRN Reason: ANXIETY Last Admin: 11/14/18 20:54 Dose: 1 mg Morphine Sulfate (Morphine Inj) 4 mg IV.PUSH Q4H PRN PRN Reason: pain 3-10 Last Admin: 11/15/18 06:53 Dose: 4 mg Ondansetron HCl (Zofran Inj) 4 mg IV.PUSH Q6H PRN PRN Reason: NAUSEA OR VOMITING Sennosides (Senokot) 17.2 mg PO Q12H PRN PRN Reason: Moderate Constipation Sodium Chloride (Ns Flush) 2 ml IV.FLUSH PRN PRN PRN Reason: FLUSH AFTER USING IV ACCESS Sodium Chloride (Ns Flush) 2 ml IV.FLUSH BID [facility] Last Admin: 11/15/18 09:14 Dose: Not Given Temazepam (Restoril) 15 mg PO HS PRN PRN Reason: INSOMNIA Physical Exam Vital signs: Last Vital Signs Temp 98.3 F 11/15/18 08:00 Pulse 75 11/15/18 08:00 Resp 16 11/15/18 08:00 BP 131/58 L 11/15/18 08:00 Pulse Ox 94 L 11/15/18 08:00 Narrative: GENERAL: NAD, AAOx3 SKIN: Warm and dry. HEENT: Atraumatic. Normocephalic. Pupils equal and round. No scleral icterus. No injection or drainage. No nasal bleeding or discharge. Mucous membranes pink and moist. NECK: Trachea midline. No JVD. CARDIO: Regular. RESP: Clear to auscultation. Breath sounds equal bilaterally. ABD: +BS, soft, non-tender, nondistended. Hepatic and splenic margins not palpable. EXT: Extremities without clubbing, cyanosis, or edema. No obvious deformities. NEURO: Awake and alert. No obvious cranial nerve deficits. Motor grossly within normal limits. Five out of 5 muscle strength in the arms and legs. Normal speech. PSYCH: Appropriate mood and affect; insight and judgment normal. Results Labs CBC & Chem 7: 11/14/18 19:54 11/14/18 19:54 Imaging Femur X-Ray 11/14/18 18:47 CONCLUSION: Femoral neck fracture. Chest X-Ray 11/14/18 19:19 CONCLUSION: The lungs are clear. Caprini VTE Risk Assessment Caprini VTE Risk Assessment: Moderate/High Risk (score >= 2) Caprini Risk Assessment Model: Point Value = 1 Point Value = 2 Point Value = 3 Point Value = 5 Age 41-60 Minor surgery BMI > 25 kg/m2 Swollen legs Varicose veins or History of unexplained or recurrent spontaneous Oral contraceptives or hormone replacement Sepsis (< 1 month) Serious lung disease, including pneumonia (< 1 month) Abnormal pulmonary function Acute myocardial infarction Congestive heart failure (< 1 month) History of inflammatory bowel disease Medical patient at bed rest Age 61-74 Arthroscopic surgery Major open surgery (> 45 min) Laparoscopic surgery (> 45 min) Malignancy Confined to bed (> 72 hours) Immobilizing plaster cast Central venous access Age >= 75 History of VTE Family history of VTE Factor V Leiden Prothrombin [id number] Lupus anticoagulant Anticardiolipin antibodies Elevated serum homocysteine Heparin-induced thrombocytopenia Other congenital or acquired thrombophilia Stroke (< 1 month) Elective arthroplasty Hip, pelvis, or leg fracture Acute spinal cord injury (< 1 month) Prophylaxis Regimen: Total Risk Factor Score Risk Level Prophylaxis Regimen 0-1 Low Early ambulation 2 Moderate Order ONE of the following: *Sequential Compression Device (SCD) *Heparin 5000 units SQ BID 3-4 Higher Order ONE of the following medications: *Heparin 5000 units SQ TID *Enoxaparin/Lovenox 40 mg SQ daily (WT < 150 kg, CrCl > 30 mL/min) *Enoxaparin/Lovenox 30 mg SQ daily (WT < 150 kg, CrCl > 10-29 mL/min) *Enoxaparin/Lovenox 30 mg SQ BID (WT < 150 kg, CrCl > 30 mL/min) AND/OR *Sequential Compression Device (SCD) 5 or more Highest Order ONE of the following medications: *Heparin 5000 units SQ TID (Preferred with Epidurals) *Enoxaparin/Lovenox 40 mg SQ daily (WT < 150 kg, CrCl > 30 mL/min) *Enoxaparin/Lovenox 30 mg SQ daily (WT < 150 kg, CrCl > 10-29 mL/min) *Enoxaparin/Lovenox 30 mg SQ BID (WT < 150 kg, CrCl > 30 mL/min) AND *Sequential Compression Device (SCD) Assessment and Plan Assessment (1) Closed fracture of right hip: Code(s): S72.001A - Fracture of unspecified part of neck of right femur, initial encounter for closed fracture Status: Acute (2) Anxiety: Code(s): F41.9 - Anxiety disorder, unspecified Status: Chronic Plan Right femoral neck fracture - Pt is a 63 y/o female with anxiety/depression, osteoarthritis, and allergic rhinitis who presented to the ED at [facility] on 11/14/17 for evaluation of right upper leg pain which began after a mechanical fall 1 week prior. Patient reportedly tripped and fell over a rug 1 week ago and landed on her right side. Her pain acutely worsened while walking yesterday and this prompted her evaluation in the ED on 11/14/17. - Imaging studies in the ED revealed a right mildly displaced femoral neck fracture. - Pt was seen by Orthopedic surgery and underwent surgical repair this morning. - Post-op pain control per Ortho - Constipation precautions - IS - PT daily - DVT prophylaxis Anxiety - Pt reported uses Diazepam 10mg BID PRN for anxiety at home. _ (1) Closed fracture of right hip Qualifiers: Encounter type: initial encounter Fracture healing: Qualified Code(s): S72.001A - Fracture of unspecified part of neck of right femur, initial encounter for closed fracture
[2018-11-15] MEDS ORDERED: Post-op Orders (for Pharmacy) OTHER STA (11:58)
[2018-11-15] MEDS ORDERED: Promethazine 25 MG Supp RECTAL PRN (11:58)
[2018-11-15] MEDS ORDERED: ceFAZolin Inj 2,000 MG in Sodium Chlor 0.9% Inj 80 ML IV.SIG SCH (12:00)
[2018-11-15] MEDS ORDERED: Vancomycin Inj 1 GM/200 ML PIGGYBACK IV.SIG SCH (12:00)
--- NOTE | 2018-11-15 12:03 | P.OP ---
- Preoperative Diagnosis (1) Closed fracture of right hip Date of procedure: 11/15/18 Procedure: Right total hip arthroplasty by anterior approach Anesthesia: GETA Surgeon: Marlon Valdez MD Cardiac Technologist: DILIP Santiago PA-C The surgical procedure was assisted by my physician payroll human resources assistant. My P.A. presence was necessary throughout this case for the manipulation and positioning of the surgical extremity. My P.A. was assisting me throughout the duration of this procedure. The skill set of a physician payroll human resources assistant was medically necessary to complete this procedure. During the surgical case the manager surgical was working at the back table and the physician payroll human resources assistant was directly assisting me. Operation and Findings: PLAN OF ACTIVITY Weight bear as tolerated. IMPLANTS USED DePuy Actis size [4] collared stem with a size [46] [place]et Gription cup, [46/ 28] Altrx poly liner, and a [28+1] Biolox ceramic head. DETAILS OF PROCEDURE: Fabi had a fall approximately 5 days ago resulting in femoral neck fracture. She did not present to the emergency room until yesterday. X-rays revealed a displaced right femoral neck fracture. Treatment options were discussed including open reduction internal fixation, hemiarthroplasty, and total hip arthroplasty. The risk and benefits of each were discussed with patient. Given her age and activity level, she wishes to proceed with total hip arthroscopy. The patient wished to proceed with surgery and informed consent was obtained. Operative site was marked. I discussed both posterior approach and anterior approach with the patient and decision was made for anterior approach. Patient was brought to OR and placed on OR table. IV sedation and general anesthesia was administered by anesthesiologist. Patient positioned on a Bina table and was given IV antibiotics. Time-out procedure was performed. The hip and thigh were prepped with alcohol followed by Hibiclens. The thigh was draped in the usual sterile fashion. Clean Air Suite was used for this procedure. The procedure began with a 5-inch incision over the anterolateral thigh. Subcutaneous tissue was dissected with Bovie. The fascia over the tensa fasciae latae was incised. Care was taken to avoid injury to the lateral femoral cutaneous nerve. The tensor muscle was retracted laterally. Sartorius was retracted medially. Retractors were now placed. The reflected head of the rectus is now elevated. A capsulotomy was performed over the anterior head capsule. Sutures were placed to help retract the capsule. At this point the femoral head and neck were identified. The fracture was visualized. With soft tissue protected, oscillating saw was used to make a cut through the femoral neck, the femoral head was now removed. At this point attention was turned to preparation of the acetabulum. The labrum was excised. The acetabulum was sequentially reamed up to size [46]. A [place]et cup was now placed. Fluoroscopy was used to aid in identification of appropriate version. Cup was fully impacted and found to have excellent fit. Hole eliminator was now placed. The liner was now impacted into the cup. At this point the hip was externally rotated. A hook was placed around the proximal femur. The capsule was released off the lateral and medial femur. The hip was now extended and adducted. Retractors were placed around the proximal femur to allow for exposure. A box osteotome was used to remove the lateral cortex of the femoral neck. A broach was used to help lateralize the prosthesis. Canal finder was used to create a path down the canal. Next, the canal was sequentially broached up to size [4]. This was found to be an excellent fit. Calcar planer was placed. A standard head was placed, and the hip was reduced. The hip was found to have excellent stability with good range of motion. The leg lengths were measured under fluoroscopy and found to be equal compared to preoperatively. Trial broach was removed. The Actis stem was opened. Stem was fully impacted into the proximal femur in appropriate version. The femoral head was placed. The hip was again reduced. Fluoroscopy confirmed excellent alignment of prosthesis. The wound was thoroughly irrigated and capsule was closed with #1 Vicryl. The fascia over the tensor fasciae muscle was closed with #1 Vicryl, subcutaneous tissue was closed with 3-0 Vicryl and the skin was closed with stevan and Dermabond skin closure. The capsule layers, muscle, and subcutaneous tissue were injected with a mixture of saline and bupivicaine. Dressings were applied. The patient was transferred to Recovery Room in stable condition.
[2018-11-15] MEDS ORDERED: fentaNYL Citrate Inj 100 MCG/2 ML Ampul ONE (12:36)
[2018-11-15] MEDS ORDERED: *morphine SULFATE 4 MG/ML PERIprocedure ONLY ONE (12:57)
[2018-11-15] MEDS ORDERED: Tranexamic Acid Inj 1,000 MG in Sodium Chlor 0.9% Inj 100 ML IV.SIG SCH (13:00)
[2018-11-15] MEDS: Calcium/Vitamin D 250/125 MG Tablet PO SCH ×2 (13:07→17:09)
--- NOTE | 2018-11-15 13:24 | XR ---
EXAM DATE: 11/15/2018 1:14 PM EST AGE/SEX: 63 years / Female INDICATIONS: Right total hip replacement. CLINICAL DATA: This is the patient's initial encounter. Patient reports that signs and symptoms have been present for 1 day and indicates a pain score of Nonresponsive. MEDICAL/SURGICAL HISTORY: Non-responsive. Non-responsive. COMPARISON: No prior exams available for comparison. FINDINGS: 2 spot intraoperative fluoroscopic views of the right hip demonstrate a total hip arthroplasty with o verlying skin stevan. Excellent alignment. CONCLUSION: Right hip arthroplasty. Electronically signed by: Vipul Gómez MD Board Certified Radiologist 11/15/2018 1:22 PM EST
[2018-11-15] MEDS: ceFAZolin 2 GM Premix Inj 2 GM/50 ML PIGGYBACK IV.SIG SCH (17:09)
[2018-11-15] MEDS: Senna/Docusate Sodium 8.6/50 MG Tablet PO SCH (22:22)
[2018-11-15] MEDS: Celecoxib 200 MG Capsule PO SCH (22:22)
[2018-11-15] MEDS: Vancomycin Inj 1,000 MG in Sodium Chlor 0.9% Inj 250 ML IV.SIG SCH (22:32)
--- NOTE | 2018-11-15 23:27 | ECG ---
Date Performed: 11/14/2018 Time Performed: 19:30:38 PTAGE: 63 years EKG: Sinus rhythm NORMAL ECG PREVIOUS TRACING : 06/21/2009 21.34 DOCTOR: Juan Hughes Interpretating Date/Time 11/15/2018 23:25:18
[2018-11-16] MEDS: ceFAZolin 2 GM Premix Inj 2 GM/50 ML PIGGYBACK IV.SIG SCH ×3 (01:27→09:22)
[2018-11-16] MEDS: Sod Chloride 0.9% Inj 1,000 ML IV.CONT SCH ×3 (03:29→22:47)
[2018-11-16 07:03] LABS: Hematocrit 22.1 % (35.0-46.0); Hemoglobin 7.6 gm/dL (11.6-15.3)
[2018-11-16] MEDS: Senna/Docusate Sodium 8.6/50 MG Tablet PO SCH ×3 (07:17→20:38)
[2018-11-16] MEDS: Calcium/Vitamin D 250/125 MG Tablet PO SCH ×6 (07:18→17:03)
[2018-11-16] MEDS: Celecoxib 200 MG Capsule PO SCH ×3 (07:18→20:38)
--- NOTE | 2018-11-16 09:23 | P.PNOP ---
Subjective Interval history: Pain is controlled. Has been slightly hypotensive overnight. No new complaints Physical Exam Vital signs: Vital Signs 11/15/18 12:28 11/15/18 12:30 11/15/18 12:45 Temperature 97.4 F L Pulse Rate 76 76 76 Respiratory Rate 15 14 14 Blood Pressure 150/81 H 139/74 136/61 Pulse Oximetry 100 100 100 11/15/18 13:00 11/15/18 13:15 11/15/18 16:00 Temperature 97.6 F 98.0 F Pulse Rate 69 68 92 H Respiratory Rate 14 13 16 Blood Pressure 106/52 L 103/56 L 102/59 L Pulse Oximetry 97 97 94 L 11/15/18 21:01 11/16/18 00:00 11/16/18 04:00 Temperature 98.6 F 98.5 F 98.2 F Pulse Rate 82 79 68 Respiratory Rate 17 18 16 Blood Pressure 96/53 L 90/53 L Pulse Oximetry 95 94 L 93 L 11/16/18 07:46 Temperature 99.1 F Pulse Rate 86 Respiratory Rate 18 Blood Pressure 109/56 L Pulse Oximetry 94 L Intake & Output 11/15/18 11/16/18 11/16/18 18:59 06:59 18:59 Intake Total 1520 / 1520 2400 / 2400 50 / 50 Output Total 600 / 600 Balance 1520 / 1520 1800 / 1800 50 / 50 Intake: IV 1160 / 1160 2400 / 2400 50 / 50 LR 1000 mL Inj 1,000 ML @ 80 1000 / 1000 mls/hr IV.CONT .[id number] [facility] Rx# :[id number] Ofirmev Inj 1,000 mg In 100 ml 100 / 100 @ 400 mls/hr IV.SIG Q12H [facility] Rx #:[id number] LR 1000 mL Inj 1,000 ML @ 999 1000 / 1000 1000 / 1000 mls/hr IV.SIG .Q1H1M [facility] Rx#: [id number] Cyklokapron Inj 1,000 MG In NS 110 / 110 Inj 100 ML @ 200 mls/hr IV.SIG [employer] [facility] Rx#:[id number] Vancomycin Inj 1,000 MG In NS 250 / 250 Inj 250 ML @ 250 mls/hr IV.SIG Q12H [facility] Rx#:[id number] Ancef 2 GM Premix Inj 2 gm In 50 / 50 50 / 50 50 / 50 50 ml @ 100 mls/hr IV.SIG Q8H [facility] Rx#:[id number] Oral 360 / 360 Output: Urine Amount (Catheter) 600 / 600 Indwelling Urethral Catheter 600 / 600 Other: Date of Last Bowel Movement 11/14/18 11/14/18 11/14/18 Narrative: Right lower extremity: Clean dry dressings intact. Mild swelling. Distally intact sensation with good capillary refills with active dorsiflexion and plantarflexion of foot - Urinary Catheter Management Indwelling Urethral Catheter Cath placed during this visit: yes, but has since been removed by the nurse Reason for continuing: Decision to DC catheter Insertion date: 11/14/18 Insertion time: 20:32 Removal date: 11/16/18 Removal time: 05:49 Results - Labs CBC & Chem 7: 11/16/18 06:36 11/14/18 19:54 Laboratory Results - last 24 hr 11/15/18 11/16/18 10:55 06:36 Hgb 7.6 L D Hct 22.1 L Blood Type O Positive Blood Type Recheck Required Antibody Screen Negative - Imaging Impressions Hip X-Ray 11/15/18 00:00 CONCLUSION: Right hip arthroplasty. Assessment and Plan - Assessment and Plan Right anterior total hip arthroplasty POD 1 as a result of right femoral neck fracture Physical therapy: Weightbearing as tolerated twice daily 81 mg aspirin twice daily Incentive spirometry Maintain dressing for 5 days then discontinue outer dressing. When out of dressing is removed ensure that surgical tape remains in place. Cover with Primapore or border gauze Plan for discharge to home tomorrow if doing well with physical therapy and cleared medically Follow-up with Dr. Bailon or PA in 2 weeks
--- NOTE | 2018-11-16 09:27 | P.DCO ---
- Physical Therapy Physical Therapy: Gait training Hip: Total hip, Protocol: Right Right Lower Extremity Weight Bearing: Weight bearing as tolerated - Nursing RN: 3 days/week x 2 weeks Dressing changes: Coverderm/Primapore (Beginning 11/22/2018 remove outer dressing ensuring that surgical tape remains over incision. Then replace with Primapore or cover Derm. This may be done every other day unless there is drainage) - Case Management Consult Case Management Consult-Home Health: Yes - Certification Need for Home Health services: I have seen patient Fabi Ronquillo on 11/16/18. My clinical findings support the need for the requested home health care services because: Need for Home Health Services: Limited mobility due to disease progression Homebound Certification: I certify that my clinical findings support that this patient is homebound because: Homebound Certification: Post-op weakness
[2018-11-16] MEDS: Vancomycin Inj 1,000 MG in Sodium Chlor 0.9% Inj 250 ML IV.SIG SCH (10:01)
--- NOTE | 2018-11-16 10:27 | P.PNIM ---
Subjective Interval history: Pt underwent right total hip arthroplasty by anterior approach on 11/15/[address] Bailon Pt was hypotensive overnight with SBP as low as 90 SBP in the low 100's this morning Pt has had a few doses of [place] 7.5/325 since surgery which is likely contributing to the hypotension. Physical Exam Vital signs: Last Vital Signs Temp 99.1 F 11/16/18 07:46 Pulse 86 11/16/18 07:46 Resp 18 11/16/18 07:46 BP 109/56 L 11/16/18 07:46 Pulse Ox 94 L 11/16/18 07:46 Narrative: GENERAL: NAD, AAOx3 CARDIO: Regular. RESP: CTA bilaterally. ABD: +BS, soft, non-tender, nondistended. Hepatic and splenic margins not palpable. EXT: Right hip bandages are c/d/i Results Labs CBC & Chem 7: 11/16/18 06:36 11/14/18 19:54 Imaging Femur X-Ray 11/14/18 18:47 CONCLUSION: Femoral neck fracture. Chest X-Ray 11/14/18 19:19 CONCLUSION: The lungs are clear. Hip X-Ray 11/15/18 00:00 CONCLUSION: Right hip arthroplasty. Assessment and Plan Assessment (1) Status post total hip replacement, right: Code(s): Z96.641 - Presence of right artificial hip joint Status: Acute Plan Right femoral neck fracture - Pt is a 63 y/o female with anxiety/depression, osteoarthritis, and allergic rhinitis who presented to the ED at [facility] on 11/14/17 for evaluation of right upper leg pain which began after a mechanical fall 1 week prior. Patient reportedly tripped and fell over a rug 1 week ago and landed on her right side. Her pain acutely worsened while walking yesterday and this prompted her evaluation in the ED on 11/14/17. - Imaging studies in the ED revealed a right mildly displaced femoral neck fracture. - Pt was seen by Orthopedic surgery and underwent right total hip arthroplasty by anterior approach on 11/15/[address] Bailon - Pt was hypotensive overnight with SBP as low as 90 - SBP in the low 100's this morning - Pt has had a few doses of [place] 7.5/325 since surgery which is likely contributing to the hypotension. Try to minimize narcotics - Celebrex BID ordered by Ortho - Constipation precautions - IS - PT daily - DVT prophylaxis Anxiety - Pt reported uses Diazepam 10mg BID PRN for anxiety at home.
[2018-11-16 23:20] VITALS: RESP 18
--- NOTE | 2018-11-17 06:54 | P.PNOP ---
Subjective Interval history: POD 2 s/p right MARCIAL doing well. walked the ponce yesterday. states pain improving Physical Exam Vital signs: Vital Signs 11/16/18 07:46 11/16/18 11:16 11/16/18 14:16 Temperature 99.1 F 98.4 F Pulse Rate 86 84 Respiratory Rate 18 18 16 Blood Pressure 109/56 L 93/54 L Pulse Oximetry 94 L 94 L 11/16/18 15:59 11/16/18 16:16 11/16/18 20:00 Temperature 98.1 F 98 F Pulse Rate 98 H 98 H Respiratory Rate 17 18 Blood Pressure 90/50 L 96/60 L 109/53 L Pulse Oximetry 94 L 93 L 11/17/18 00:00 11/17/18 01:20 11/17/18 04:00 Temperature 98.5 F 97.8 F Pulse Rate 96 H 90 Respiratory Rate 18 18 18 Blood Pressure 103/52 L 124/60 Pulse Oximetry 93 L 96 Intake & Output 11/16/18 11/16/18 11/17/18 06:59 18:59 06:59 Intake Total 2400 / 2400 992 / 992 808 / 808 Output Total 600 / 600 300 / 300 Balance 1800 / 1800 692 / 692 808 / 808 Weight 44.906 kg Intake: IV 2400 / 2400 992 / 992 508 / 508 LR 1000 mL Inj 1,000 ML @ 80 1000 / 1000 592 / 592 408 / 408 mls/hr IV.CONT .[id number] [facility] Rx# :[id number] Ofirmev Inj 1,000 mg In 100 ml 100 / 100 100 / 100 100 / 100 @ 400 mls/hr IV.SIG Q12H [facility] Rx #:[id number] LR 1000 mL Inj 1,000 ML @ 999 1000 / 1000 mls/hr IV.SIG .Q1H1M [facility] Rx#: [id number] Vancomycin Inj 1,000 MG In NS 250 / 250 250 / 250 Inj 250 ML @ 250 mls/hr IV.SIG Q12H [facility] Rx#:[id number] Ancef 2 GM Premix Inj 2 gm In 50 / 50 50 / 50 50 ml @ 100 mls/hr IV.SIG Q8H [facility] Rx#:[id number] Oral 300 / 300 Output: Urine 300 / 300 Urine Amount (Catheter) 600 / 600 Indwelling Urethral Catheter 600 / 600 Other: # Voids 3 Date of Last Bowel Movement 11/14/18 11/14/18 11/17/18 # Bowel Movements 2 Narrative: RLE: dressing clean and dry. intact. NVI - Urinary Catheter Management Indwelling Urethral Catheter Cath placed during this visit: yes, but has since been removed by the nurse Reason for continuing: Decision to DC catheter Insertion date: 11/14/18 Insertion time: 20:32 Removal date: 11/16/18 Removal time: 05:49 Results - Labs CBC & Chem 7: 11/16/18 06:36 11/14/18 19:54 Laboratory Results - last 24 hr 11/16/18 06:36 Hgb 7.6 L D Hct 22.1 L Assessment and Plan - Problem List (1) Status post total hip replacement, right Code(s): Z96.641 - Presence of right artificial hip joint Status: Acute - Assessment and Plan Right anterior total hip arthroplasty POD 2 as a result of right femoral neck fracture Physical therapy: Weightbearing as tolerated twice daily 81 mg aspirin twice daily Incentive spirometry Maintain dressing for 5 days then discontinue outer dressing. When out of dressing is removed ensure that surgical tape remains in place. Cover with Prim[place] or border gauze Plan for discharge to home today if doing well with physical therapy and cleared medically Follow-up with Dr. Bailon or PA in 2 weeks [facility] [place] Prescription Drug Monitoring Database has been queried and verified prior to prescribing the controlled substance. Acute pain exception. This patient has normal, predicted, physiological, and time limited response to an adverse mechanical stimulus associated with surgery, trauma, or acute illness as described in my notes. There is a lack of alternative treatment options other than to include the prescribed narcotic treatment for this condition.
[2018-11-17] MEDS: Senna/Docusate Sodium 8.6/50 MG Tablet PO SCH (08:44)
[2018-11-17] MEDS: Celecoxib 200 MG Capsule PO SCH (08:45)
[2018-11-17] MEDS: Calcium/Vitamin D 250/125 MG Tablet PO SCH ×3 (08:45→17:49)
--- NOTE | 2018-11-17 10:50 | P.DS ---
DS: Providers Date of admission: 11/14/18 19:52 Primary care physician: Guy Walker DO Consults: 11/14/18 19:44 Consult to Orthopedic Surgery Routine Consulting Provider: Brent Kingston Reason for Consultation: hip fx. ED spoke with Dr Kingston Notified:: Service Spoke with:: valeriano Date Notified:: 11/14/18 Time Notified:: 20:31 Ordering Provider: MOHAMUD 11/16/18 10:38 HUB Only Consult Order Routine Consulting Provider: Doctors [facility],Agency Brief History from admission: Mrs. Ronquillo is a 63 y/o female with anxiety/ depression, osteoarthritis, and allergic rhinitis who presented to the ED at [facility] [place] on 11/14/17 for evaluation of right upper leg pain which began after a mechanical fall 1 week prior. Patient reportedly tripped and fell over a rug 1 week ago and landed on her right side. She had to be assisted to stand up by her and daughters but by later in the evening was able to ambulate. Pt reports that the pain worsened with ambulation throughout the week, mostly localized to the mid femur and radiates down her entire right lower extremity. She also reports pain in her right lateral hip and buttock region. Her pain acutely worsened while walking yesterday and this prompted her evaluation in the ED on 11/14/17. Imaging studies in the ED revealed a right mildly displaced femoral neck fracture. Pt was seen by Orthopedic surgery and underwent surgical repair this morning. Past Medical Hx: Anxiety/Depression OA Chronic back pain Allergic rhinitis Tobacco use Past Surgical Hx: None reported Family Hx: Noncontributory Social Hx: Hx of tobacco use Denies any alcohol use DS: Diagnosis Discharge Diagnosis (1) Status post total hip replacement, right: Status: Acute DS: Summary Right femoral neck fracture - Pt is a 63 y/o female with anxiety/depression, osteoarthritis, and allergic rhinitis who presented to the ED at [facility] [place] on 11/14/17 for evaluation of right upper leg pain which began after a mechanical fall 1 week prior. Patient reportedly tripped and fell over a rug 1 week ago and landed on her right side. Her pain acutely worsened while walking yesterday and this prompted her evaluation in the ED on 11/14/17. - Imaging studies in the ED revealed a right mildly displaced femoral neck fracture. - Pt was seen by Orthopedic surgery and underwent right total hip arthroplasty by anterior approach on 11/15/[address] Bailon - Pt was hypotensive overnight 11/16/18 with SBP as low as 90 - improved - Pt has had a few doses of [place] 7.5/325 since surgery which is likely contributing to the hypotension. Try to minimize narcotics - Per Orthopedic surgery: Physical therapy: Weightbearing as tolerated twice daily 81 mg aspirin twice daily Incentive spirometry Maintain dressing for 5 days then discontinue outer dressing. When out of dressing is removed ensure that surgical tape remains in place. Cover with Prim[place] or border gauze Plan for discharge to home today if doing well with physical therapy and cleared medically Follow-up with Dr. Bailon or PA in 2 weeks - Constipation precautions - IS - PT daily - DVT prophylaxis Anxiety - Pt reported uses Diazepam 10mg BID PRN for anxiety at home. - patient refusing SNF for rehab. Patient willing to accepted DC home with [facility]. The exam, history, and the medical decision-making described in the above note were completed with the assistance of the mid-level provider. I reviewed and agree with the findings presented. I attest that I had a [id number] encounter with the patient on the same day, and personally performed and documented my assessment and findings in the medical record. Patient examined. Assessment and plan formulated with Bee Clifford PA-C. I agree with the above. Pt interviewed and examined. I explained to pt that I would prefer to transfer her to a SNF. Pt adamantly refuses SNF. Pt with surgical repair of hip fracture. Pt risk further injury if fall at home including possibility of further fracture or head injury requiring rehospitalizaiton. I have arranged for HHC and home physical therapy. If arrangements at home prove to be insufficient, pt understands that SNF could still be arranged through [facility] Case Mgmt. Time Spent with Patient Total time spent providing and/or coordinating discharge services: Exam Narrative Exam Narrative: GENERAL: NAD, AAOx3 CARDIO: Regular. RESP: CTA bilaterally. ABD: +BS, soft, non-tender, nondistended. Hepatic and splenic margins not palpable. EXT: Right hip bandages are c/d/i Results Impressions ITS Impressions Femur X-Ray 11/14/18 18:47 CONCLUSION: Femoral neck fracture. Chest X-Ray 11/14/18 19:19 CONCLUSION: The lungs are clear. Hip X-Ray 11/15/18 00:00 CONCLUSION: Right hip arthroplasty. Discharge Plan Discharge Disposition Patient Disposition: Disch W/Home Health Service Discharge Condition Condition: Stable Discharge Order Discharge Orders: Discharge Order (Routine); Ordered 11/17/18 Ordered By: Bee Clifford Orthopedic Clear for Discharge (Routine); Ordered 11/17/18 Ordered By: Raymundo Saldana Discharge Details Anticipated Discharge Date: 11/17/18 Physicians Team ED Provider: Collin Spence ED Midlevel Provider: Elli Galicia Primary Care Provider: Guy Walker Attending Provider: Jg Mcpherson Other Providers: Marlon Bailon ; Brent Kingston ; [facility] Rxs /Orders / Referrals /Forms Prescriptions: New hydrocodone-acetaminophen [[place]] 10-325 mg Tablet 1 tab PO Q4H Qty: 40 RF: 0 aspirin [Jael Chewable Aspirin] 81 mg Tablet,Chewable 81 mg PO BID Qty: 60 RF: 0 sennosides-docusate sodium [Senna Plus] 8.6-50 mg Tablet 1 tab PO BID 30 Days Qty: 60 RF: 0 Continue diazepam 10 mg Tablet 10 mg PO BID PRN (Reason: Pain) RF: 0 Discontinued hydrocodone-acetaminophen 10-325 mg Tablet 1 tab PO TID PRN (Reason: Pain) RF: 0 Ambulatory Orders / Order Sets / DME: Walker With Front Wheels (1 each) (Routine) Location: Determined by Patient Ordered By: Narda Turner Referrals: Eduin Marti [facility] [Outside] - See Instructions Guy Walker DO [Primary Care Provider] - See Instructions (follow up in 1 week) Marlon Bailon MD [Physician] - See Instructions (2 weeks) Discharge Instructions Patient Printed Instructions: Hydrocodone/Acetaminophen (By mouth), Laxative, Stool Softeners (By mouth), How to Choose and Use a Walker (GEN), Fall Prevention (DC), Hip Fracture (ED), Anterior Hip Replacement (DC) Additional Instructions: DO NOT REMOVE SURGICAL DRESSING. KEEP OPTIFOAM DRY AND INTACT. REPORT ANY INCREASED SWELLING, REDNESS, BLEEDING, FEVER, OR CHANGES IN SENSATION TO YOUR SURGEON. FOLLOW UP WITH DR. BAILON WITHIN 1-2 WEEKS. PLEASE CALL TO SCHEDULE APPOINTMENT. CONTINUE TO TAKE STOOL SOFTENERS/LAXATIVES WHILE TAKING NARCOTIC PAIN MEDICATION. HOME HEALTH CARE TO BE PROVIDED BY: DOCTOR'S CHOICE, Post Discharge Care Plan Care Plan Goals: Discharge Care Plan Goals for Total Hip Replacement You had a hip replacement surgery. This means your natural hip was replaced with an artificial joint (prosthesis). You may be recovering at home or in a rehabilitation facility. Either way, you must take care of your new hip. Here are some goals to help you heal well. Directions to Meet your Goals: 1. Activity & Exercises: * Take pain medicine as directed by your doctor. * Dont drive until your doctor says its OK. And never drive while taking opioid pain medicine. * Wear the support stockings you were given in the hospital as directed by your surgeon. * Dont sit for more than 30 to 45 minutes at one time. * Dont lean forward while sitting. * Dont cross your legs. * Keep your feet flat on the floor. Dont turn your foot or leg inward. This stresses your hip joint. * Use an elevated toilet seat for 6 weeks after surgery. * Nap if you are tired, but dont stay in bed all day. * Sit on a firm cushion when you ride in a car and avoid sitting too low. Try not to bend your hip too much when getting in and out of the car. 2. Prevent Falls/Injury: * Follow your doctors orders regarding how much weight to put on the affected leg. * Dont bend at the hip when you bend over. Don't bend at the waist to put on socks and shoes. And avoid picking up items from the floor. * Use a cane, crutches, a walker, or handrails until your balance, flexibility, and strength improve. And remember to ask for help from others when you need it. * Free up your hands so that you can use them to keep balance. Use a sergey pack , apron, or pockets to carry things. * Arrange your household to keep the items you need handy. Keep everything else out of the way. * Remove items that may cause you to fall, such as throw rugs and electrical cords. * Use nonslip bath mats, grab bars, an elevated toilet seat, and a shower chair in your bathroom * Sit on a shower stool or chair when you shower to keep from falling. 3. Precautions: * Prevent infection. Any infection will need to be treated immediately. Call your doctor right away if you think you might have an infection. * Tell your dentist that you have an artificial joint and take antibiotics as prescribed before any dental work. * Tell all your healthcare providers about your artificial joint before any medical procedure. * Maintain a healthy weight. Get help to lose any extra pounds. Added body weight puts stress on the joints. 4. Incision Care: * Prevent infection by washing your hands often. If an infection occurs, it will need to be treated right away. * Call your doctor right away if you think you may have an infection. Symptoms include a fever or an incision that leaks white, green, or yellow fluid. * Don't soak your incision in water until your doctor says its OK. This means no hot tubs, bathtubs, or swimming pools. * Follow your doctor's instructions for changing the dressing. * Dont rub the incision, or apply creams or lotions to it. * If you notice any redness or drainage around the bandage site, contact your surgeon's office immediately. 5. Follow-Up: Do Not miss your follow-up appointment. Keep up with all your appointments and yearly check ups When to call your doctor: Call your doctor right away if you have: Hip pain gets worse Pain or swelling in your calf or leg not related to your incision Tenderness or redness in your calf Fever of 100.4F (38C) or higher, or as directed by your healthcare provider Shaking chills Swelling or redness at the incision site gets worse Fluid draining from the incision Call 911: Call 911 right away if you have: Chest pain Shortness of breath Any pain or tenderness in your calf Status ED Status: Left Department
[2018-11-17 14:21] VITALS: BP 106/58
[2018-11-17] MEDS: Sod Chloride 0.9% Inj 1,000 ML IV.CONT SCH ×2 (17:52→19:35)
[2018-11-17 18:31] VITALS: PULSE 91; TEMP 98.2; O2SAT 94
== END 2018-11-17 19:32 | disposition home health service (06) | DRG 470 ==
LOC: PHEFT 17:46 → PHEDA 19:52 → N06 22:19
PROVIDERS: ADMIT Hospitalist; ATTEND Hospitalist
DX: F41.9 Anxiety disorder, unspecified; Z87.891 Personal history of nicotine dependence; W01.0XXA Fall on same level from slipping, tripping and stumbling without subsequent striking against object, initial encounter; R53.1 Weakness; I95.9 Hypotension, unspecified; M54.9 Dorsalgia, unspecified; S72.001A Fracture of unspecified part of neck of right femur, initial encounter for closed fracture; G89.29 Other chronic pain
CPT/HCPCS: 71010; 71045; 73502; 73552; 76000; 80053; 81001; 85014; 85018; 85025; 85610; 85730; 86850; 86900; 86901; 93005; 94150; 97110; 97116; 97162; 97167; 99285; C1776; C9290; J0131; J0690; J2250; J2270; J2405; J3010; J3370; J7030; J7050; J7120